=== PATIENT | female | born 1970 | race Caucasian/White ===

== ENCOUNTER 2023-07-04 05:12 | Inpatient (IN) | payer OTHER ==
[~2023-07-04] VITALS: Ht 165.1 cm; Wt 97.5 kg
[~2023-07-04 05:12] MED LIST: ESCI10TA PO; FURO20TA4 PO; HYDR-4009 PO; LISI20TA31 PO; NAPR-681 PO
[2023-07-04] MEDS ORDERED: LACTATED RINGERS 1,000 ML IV SCH (05:30)
[2023-07-04 06:04] LABS: UCG SCREEN NEGATIVE
[2023-07-04] MEDS ORDERED: BUPIVACAINE HCL/PF 0.5% (5MG/ML) 10ML ONE (07:04)
[2023-07-04] MEDS ORDERED: LIDOCAINE HCL 1% 20ML VIAL (Pyxis) INJ ONE (07:04)
[2023-07-04] MEDS ORDERED: POLYMYXIN B SULFATE 500000 UNITS/VIAL ONE (07:04)
[2023-07-04] MEDS ORDERED: CEFAZOLIN SODIUM 1000MG/VIAL ONE (07:38)
[2023-07-04] MEDS ORDERED: ROCURONIUM BROMIDE 10MG/ML VIAL 5ML IV ONE ×2 (07:38→09:37)
[2023-07-04] MEDS ORDERED: SUCCINYLCHOLINE CHLORIDE 200MG/10ML IV ONE (07:38)
[2023-07-04] MEDS ORDERED: NEOSTIGMINE METHYLSULFATE 1MG/ML 10 ML VIAL ONE (07:38)
[2023-07-04] MEDS ORDERED: ONDANSETRON HCL 4MG/2ML INJ ONE (07:38)
[2023-07-04] MEDS ORDERED: MIDAZOLAM HCL 2 MG/2 ML VIAL ONE ×2 (07:39→08:09)
[2023-07-04] MEDS ORDERED: GLYCOPYRROLATE 0.2 MG/ML 2ML VIAL ONE ×3 (07:39→10:35)
[2023-07-04] MEDS ORDERED: FENTANYL CITRATE/PF 50MCG/ML 2ML VIAL ONE ×2 (07:39→08:09)
[2023-07-04] MEDS ORDERED: PROPOFOL 200MG/20ML VIAL IV ONE (07:40)
[2023-07-04] MEDS ORDERED: HYDROMORPHONE HCL/PF 2MG/ML CPJ ONE (09:07)
[2023-07-04] MEDS ORDERED: LABETALOL 5MG/ML SYR 20 MG/4 ML SYRINGE IV PRN (10:15)
[2023-07-04] MEDS ORDERED: ONDANSETRON HCL 4MG/2ML INJ IV PRN (10:15)
[2023-07-04] MEDS ORDERED: MEPERIDINE HCL/PF 25MG/ML CPJ IV PRN (10:15)
[2023-07-04] MEDS ORDERED: NALOXONE HCL 0.4MG/ML VIAL IV PRN (11:45)
[2023-07-04] MEDS: HYDROMORPHONE HCL/PF 2MG/ML CPJ IV PRN (15:44)
[2023-07-04 18:00] VITALS: BP 112/58; PULSE 58; RESP 18; TEMP 98.2
[2023-07-04] MEDS ORDERED: IPRATROPIUM/ALBUTEROL 0.5-3(2.5)MG/3ML NEB HHN PRN (18:45)
[2023-07-04] MEDS ORDERED: ACETAMINOPHEN 325MG TABLET PO PRN (18:45)
[2023-07-04 20:00] VITALS: BP 133/83; PULSE 58; RESP 20; TEMP 96.1
[2023-07-04] MEDS: METOCLOPRAMIDE HCL 10MG TABLET PO SCH (20:40)
[2023-07-04] MEDS: MORPHINE SULFATE 4 MG/ML INJ (FOR IV/IM USE) IV PRN (22:25)
[2023-07-05] VITALS: BP 117/55; PULSE 68; RESP 18; TEMP 96.2
[2023-07-05 04:00] VITALS: BP 118/58; PULSE 68; RESP 20; TEMP 98.1
[2023-07-05 08:00] VITALS: BP 126/70; PULSE 70; RESP 17; TEMP 98.1
[2023-07-05 09:38] LABS: BASOPHILS % 0.1 % (0.0-2.0); DIFFERENTIAL COMMENT 0; EOSINOPHILS % 0.4 % (0.0-5.0); HEMATOCRIT. 27.3 % (36.0-48.0); HEMOGLOBIN. 8.5 g/dL (12.0-16.0); LYMPHOCYTES % 16.4 % (20.0-50.0); MEAN CORPUSCULAR HEMOGLOBIN 23.7 pg (28.0-32.0); MEAN CORPUSCULAR HGB CONC 31.3 g/dL (31.0-37.0); MEAN CORPUSCULAR VOLUME 75.8 fL (81.0-99.0); MEAN PLATELET VOLUME 8.3 fl (7.4-10.4); MONOCYTES % 8.1 % (2.0-8.0); PLATELET 370 x1000/uL (130-400); RED BLOOD CELL COUNT 3.61 mill/uL (4.2-5.4); RED CELL DISTRIBUTION WIDTH 16.8 % (11.6-14.6); WHITE BLOOD COUNT 9.3 x1000/uL (4.5-11.0)
[2023-07-05 10:01] LABS: CALCIUM 8.7 mg/dL (8.7-10.4); CARBON DIOXIDE 26 mEq/L (21-32); CHLORIDE 105 mEq/L (98-107); CREATININE 0.8 mg/dL (0.6-1.0); GLUCOSE 128 mg/dL (70-105); PHOSPHORUS 3.1 mg/dL (2.5-4.9); SODIUM 138 mEq/L (136-145); UREA NITROGEN BLOOD 12 mg/dL (9-23)
[2023-07-05] MEDS: HYDROCODONE/ACETAMINOPHEN 5/325MG TABLET PO PRN (10:58)
[2023-07-05 12:00] VITALS: BP 123/56; PULSE 66; RESP 17; TEMP 97.6
[2023-07-05 14:32] LABS: IRON 23 ug/dL (50-170); TOTAL IRON BINDING CAPACITY 301 ug/dl (250-425)
[2023-07-05 16:00] VITALS: BP 161/72; PULSE 69; RESP 18; TEMP 98.3
[2023-07-05 20:00] VITALS: BP 138/64; PULSE 63; RESP 20; TEMP 99.7
[2023-07-06] VITALS: BP 143/61; PULSE 86; RESP 40; TEMP 99.1
[2023-07-06 04:00] VITALS: BP 151/79; PULSE 78; RESP 20; TEMP 100
[2023-07-06 07:41] LABS: BASOPHILS % 0.2 % (0.0-2.0); DIFFERENTIAL COMMENT 0; EOSINOPHILS % 0.8 % (0.0-5.0); HEMATOCRIT. 25.9 % (36.0-48.0); HEMOGLOBIN. 8.6 g/dL (12.0-16.0); LYMPHOCYTES % 14.5 % (20.0-50.0); MEAN CORPUSCULAR HEMOGLOBIN 24.6 pg (28.0-32.0); MEAN CORPUSCULAR HGB CONC 33.1 g/dL (31.0-37.0); MEAN CORPUSCULAR VOLUME 74.3 fL (81.0-99.0); MEAN PLATELET VOLUME 8.3 fl (7.4-10.4); MONOCYTES % 9.4 % (2.0-8.0); NEUTROPHILS % 75.1 % (40.0-76.0); PLATELET 351 x1000/uL (130-400); RED BLOOD CELL COUNT 3.49 mill/uL (4.2-5.4); RED CELL DISTRIBUTION WIDTH 16.8 % (11.6-14.6); WHITE BLOOD COUNT 8.3 x1000/uL (4.5-11.0)
[2023-07-06 08:00] VITALS: BP 166/76; PULSE 79; RESP 19; TEMP 97.9
[2023-07-06 08:10] LABS: CALCIUM 8.3 mg/dL (8.7-10.4); CARBON DIOXIDE 27 mEq/L (21-32); CHLORIDE 105 mEq/L (98-107); CREATININE 0.7 mg/dL (0.6-1.0); GLUCOSE 110 mg/dL (70-105); PHOSPHORUS 3.2 mg/dL (2.5-4.9); SODIUM 139 mEq/L (136-145); UREA NITROGEN BLOOD 13 mg/dL (9-23)
[2023-07-06 12:00] VITALS: BP 167/81; PULSE 89; RESP 20; TEMP 97.9
[2023-07-06 16:00] VITALS: BP 156/80; PULSE 79; RESP 20; TEMP 97.9
[2023-07-06 20:00] VITALS: BP 182/60; PULSE 77; RESP 18; TEMP 98.2
[2023-07-07] VITALS: BP 199/85; PULSE 76; RESP 19; TEMP 98.1
[2023-07-07 04:00] VITALS: BP 204/93; PULSE 77; RESP 19; TEMP 98.1
[2023-07-07] MEDS: CLONIDINE 0.1MG TABLET PO PRN (04:38)
[2023-07-07] MEDS: AMLODIPINE 10MG TABLET PO SCH (06:45)
[2023-07-07 08:00] VITALS: BP 144/65; PULSE 74; RESP 19; TEMP 97.7
[2023-07-07 09:05] VITALS: RESP 19
[2023-07-07 12:33] VITALS: BP 144/67; PULSE 74; TEMP 97.8; O2SAT 96
== END 2023-07-07 16:17 | disposition home or self-care (01) | DRG 227 ==
LOC: OR 05:12 → 6EST 16:35
PROVIDERS: ADMIT Specialist; ATTEND Specialist
PROC: 0WUF0JZ Supplement Abdominal Wall with Synthetic Substitute, Open Approach (ICD-10-PCS; principal; 2023-07-04)
DX: K43.6 Other and unspecified ventral hernia with obstruction, without gangrene (principal); I10 Essential (primary) hypertension; K42.0 Umbilical hernia with obstruction, without gangrene; K66.0 Peritoneal adhesions (postprocedural) (postinfection); Z98.84 Bariatric surgery status; Z98.891 History of uterine scar from previous surgery; Z79.899 Other long term (current) drug therapy
CPT/HCPCS: 36415; 80048; 81025; 82728; 83540; 83550; 83735; 84100; 85025; J0330; J0690; J1170; J2250; J2270; J2405; J2704; J2710; J3010; J3490; J7120; J8597